=== PATIENT | female | born 1995 | race African-American/Black ===

== ENCOUNTER 2024-01-07 15:59 | Emergency (ER) | payer MEDICAID ==
[~2024-01-07] VITALS: Ht 157.5 cm; Wt 63.1 kg
[2024-01-07 16:53] VITALS: BP 122/79; PULSE 74; RESP 18; TEMP 97.8; O2SAT 98
[2024-01-07] MEDS: methylPREDNISolone SOD SUCC 125 MG/2 ML VL IM ONE (17:10)
[2024-01-07] MEDS: cefTRIAXone SOD 1,000 MG VL IM ONE (17:11)
[2024-01-07] MEDS ORDERED: PRED20TA2 PO (17:15)
[2024-01-07] MEDS ORDERED: LIDO2SOL26 MT (17:15)
== END 2024-01-07 17:30 | disposition home or self-care (01) ==
LOC: ER 15:59
DX: J03.90 Acute tonsillitis, unspecified (principal)
CPT/HCPCS: 96372; 99284; J0696; J2930